=== PATIENT | female | born 2000 | race Caucasian/White ===

== ENCOUNTER 2020-08-01 20:57 | Observation (INO) | payer OTHER, MEDICAID ==
[~2020-08-01] VITALS: Ht 152.4 cm; Wt 86.6 kg
[2020-08-01] MEDS ORDERED: PREN1TAB78 PO (21:27)
[2020-08-01] MEDS ORDERED: ALBUTEROL (21:27)
[2020-08-01] MEDS ORDERED: LACTATED RINGERS 1,000 ML IV SCH (21:30)
[2020-08-01 22:00] LABS: HEMATOCRIT 28.7 % (36.0-48.0); HEMOGLOBIN 10.1 g/dL (12.0-16.0); MEAN CORPUSCULAR HEMOGLOBIN 28.4 pg (28.0-32.0); MEAN CORPUSCULAR VOLUME 81.1 fL (81.0-99.0); PLATELET 390 x1000/uL (130-400); RED BLOOD CELL COUNT 3.54 mill/uL (4.2-5.4); RED CELL DISTRIBUTION WIDTH 14.2 % (11.6-14.6)
[2020-08-01 22:04] LABS: COLOR URINE YELLOW (YELLOW); KETONES URINE NEGATIVE (NEGATIVE); LEUKOCYTE ESTERASE URINE 2+ (NEGATIVE); NITRITE URINE POSITIVE (NEGATIVE); OCCULT BLOOD URINE NEGATIVE (NEGATIVE); PROTEIN URINE NEGATIVE (NEGATIVE); SPECIFIC GRAVITY URINE 1.016 (1.005-1.030); UROBILINOGEN URINE 0.2 E.U./dL (0.2-1.0)
[2020-08-01 22:08] LABS: CLARITY URINE HAZY (CLEAR)
[2020-08-01 22:12] LABS: CHLORIDE 106 mEq/L (98-107)
[2020-08-01] MEDS ORDERED: CEFAZOLIN 2,000 MG in DEXT 5% WATER 100 ML IV SCH (23:00)
== END 2020-08-01 23:57 | disposition home or self-care (01) ==
LOC: 8 EST LDRP 20:57
PROVIDERS: ADMIT Obstetrics & Gynecology; ATTEND Obstetrics & Gynecology
DX: O26.892 Other specified pregnancy related conditions, second trimester (principal); R10.30 Lower abdominal pain, unspecified; R42 Dizziness and giddiness; Z3A.21 21 weeks gestation of pregnancy
CPT/HCPCS: 36415; 59025; 76805; 80053; 81003; 85027; 96361; 96365; G0378; J0690; J7060; 96360; 99281

== ENCOUNTER 2022-08-09 19:17 | Inpatient (IN) | payer OTHER ==
[~2022-08-09] VITALS: Ht 162.6 cm; Wt 63.8 kg
[~2022-08-09 19:17] MED LIST: ALBUTEROL; PREN1TAB78 PO
[2022-08-09] MEDS ORDERED: SODIUM CHLORIDE 0.9% 1,000 ML IV ONE ×2 (19:45→23:30)
[2022-08-09 20:40] LABS: BASOPHILS % 0.4 % (0.0-2.0); EOSINOPHILS % 0.5 % (0.0-5.0); HEMATOCRIT. 31.8 % (36.0-48.0); HEMOGLOBIN. 10.1 g/dL (12.0-16.0); MEAN CORPUSCULAR HEMOGLOBIN 20.4 pg (28.0-32.0); MEAN CORPUSCULAR VOLUME 64.1 fL (81.0-99.0); MEAN PLATELET VOLUME 8.3 fl (7.4-10.4); MONOCYTES % 5.7 % (2.0-8.0); NEUTROPHILS % 72.4 % (40.0-76.0); PLATELET 391 x1000/uL (130-400); RED BLOOD CELL COUNT 4.95 mill/uL (4.2-5.4); RED CELL DISTRIBUTION WIDTH 17.7 % (11.6-14.6)
[2022-08-09 20:48] LABS: PROTHROMBIN TIME 10.9 sec (9.6-11.0)
[2022-08-09 20:49] LABS: CHLORIDE 106 mEq/L (98-107)
[2022-08-09 22:29] LABS: CLARITY URINE CLOUDY (CLEAR); COLOR URINE YELLOW (YELLOW); KETONES URINE NEGATIVE (NEGATIVE); LEUKOCYTE ESTERASE URINE 3+ (NEGATIVE); NITRITE URINE NEGATIVE (NEGATIVE); OCCULT BLOOD URINE 2+ (NEGATIVE); PROTEIN URINE 2+ (NEGATIVE); SPECIFIC GRAVITY URINE 1.012 (1.005-1.030); UROBILINOGEN URINE 0.2 E.U./dL (0.2-1.0)
[2022-08-09 22:37] LABS: PLATELET ESTIMATE NORMAL
[2022-08-09] MEDS ORDERED: KETOROLAC 30MG/ML VIAL IV ONE (23:30)
[2022-08-09] MEDS ORDERED: CEFTRIAXONE 1GM PREMIX 50 ML IV ONE (23:30)
[2022-08-09] MEDS ORDERED: ONDANSETRON HCL 4MG/2ML INJ IV ONE (23:30)
[2022-08-10 01:16] LABS: HCG SCREEN NEGATIVE
[2022-08-10] MEDS ORDERED: IOHEXOL-300 100 ML BOTTLE ONE (02:26)
[2022-08-10] MEDS ORDERED: NALOXONE HCL 0.4MG/ML VIAL IV PRN (08:00)
[2022-08-10] MEDS ORDERED: ONDANSETRON HCL 4MG/2ML INJ IV PRN (08:00)
[2022-08-10] MEDS ORDERED: CLONIDINE 0.1MG TABLET PO PRN (08:00)
[2022-08-10] MEDS ORDERED: DOCUSATE SODIUM 100MG CAPSULE PO PRN (08:00)
[2022-08-10] MEDS ORDERED: CEFTRIAXONE 1GM PREMIX 50 ML IV NR (08:00)
[2022-08-10] MEDS ORDERED: LORAZEPAM 0.5MG TABLET PO PRN (08:00)
[2022-08-10] MEDS ORDERED: ACETAMINOPHEN 325MG TABLET PO PRN (08:00)
[2022-08-10] MEDS ORDERED: IPRATROPIUM/ALBUTEROL 0.5-3(2.5)MG/3ML NEB HHN PRN (08:00)
[2022-08-10 08:31] LABS: CHLORIDE 108 mEq/L (98-107)
[2022-08-10 09:16] LABS: EOSINOPHILS % 0.5 % (0.0-5.0); HEMATOCRIT. 27.4 % (36.0-48.0); HEMOGLOBIN. 9.1 g/dL (12.0-16.0); LYMPHOCYTES % 18.6 % (20.0-50.0); MEAN CORPUSCULAR HEMOGLOBIN 21.2 pg (28.0-32.0); MEAN CORPUSCULAR VOLUME 63.7 fL (81.0-99.0); MEAN PLATELET VOLUME 8.4 fl (7.4-10.4); MONOCYTES % 7.6 % (2.0-8.0); NEUTROPHILS % 72.7 % (40.0-76.0); PLATELET 327 x1000/uL (130-400); RED CELL DISTRIBUTION WIDTH 17.7 % (11.6-14.6)
[2022-08-10 09:20] VITALS: BP 116/69
[2022-08-10] MEDS: HYDROCODONE/ACETAMINOPHEN 5/325MG TABLET PO PRN (10:33)
[2022-08-10 10:43] LABS: BASOPHILS % 0.6 % (0.0-2.0)
[2022-08-10 11:41] VITALS: BP 116/69
[2022-08-10] MEDS: CEFTRIAXONE 1,000 MG in DEXTROSE 5% WATER 50 ML IV SCH (17:00)
[2022-08-10 20:00] VITALS: BP 117/55
[2022-08-10] MEDS: ACETAMINOPHEN 325MG TABLET PO PRN (20:32)
[2022-08-11] VITALS (7 sets, daily range): BP systolic 98–116; BP diastolic 39–66
[2022-08-11 06:00] LABS: BASOPHILS % 0.4 % (0.0-2.0); EOSINOPHILS % 0.9 % (0.0-5.0); HEMATOCRIT. 26.8 % (36.0-48.0); HEMOGLOBIN. 8.8 g/dL (12.0-16.0); LYMPHOCYTES % 21.4 % (20.0-50.0); MEAN CORPUSCULAR VOLUME 64.3 fL (81.0-99.0); MONOCYTES % 9.5 % (2.0-8.0); NEUTROPHILS % 67.8 % (40.0-76.0); PLATELET 315 x1000/uL (130-400); RED BLOOD CELL COUNT 4.18 mill/uL (4.2-5.4); RED CELL DISTRIBUTION WIDTH 17.7 % (11.6-14.6)
[2022-08-11] MEDS: HYDROCODONE/ACETAMINOPHEN 5/325MG TABLET PO PRN ×2 (07:51→14:30)
[2022-08-11] MEDS ORDERED: CEFTRIAXONE 1,000 MG in DEXTROSE 5% WATER 50 ML IV SCH (08:00)
[2022-08-11 08:04] LABS: CHLORIDE 108 mEq/L (98-107)
[2022-08-11 08:12] LABS: TOTAL IRON BINDING CAPACITY 236 ug/dL (250-450)
[2022-08-11] MEDS ORDERED: METF-416 MT (11:49)
[2022-08-11] MEDS: METFORMIN HCL 500MG TABLET PO SCH (17:49)
[2022-08-11] MEDS: CEFTRIAXONE 1,000 MG in DEXTROSE 5% WATER 50 ML IV SCH (17:50)
[2022-08-11] MEDS: ACETAMINOPHEN 325MG TABLET PO PRN (20:47)
[2022-08-12] VITALS: BP 101/57
[2022-08-12 04:00] VITALS: BP 96/51
[2022-08-12] MEDS: METFORMIN HCL 500MG TABLET PO SCH ×2 (06:49→17:56)
[2022-08-12 07:46] LABS: BASOPHILS % 0.6 % (0.0-2.0); EOSINOPHILS % 2.4 % (0.0-5.0); HEMOGLOBIN. 8.6 g/dL (12.0-16.0); LYMPHOCYTES % 36.7 % (20.0-50.0); MEAN CORPUSCULAR HEMOGLOBIN 21.2 pg (28.0-32.0); MEAN CORPUSCULAR VOLUME 64.3 fL (81.0-99.0); MEAN PLATELET VOLUME 8.6 fl (7.4-10.4); NEUTROPHILS % 53.3 % (40.0-76.0); PLATELET 357 x1000/uL (130-400); RED BLOOD CELL COUNT 4.04 mill/uL (4.2-5.4); RED CELL DISTRIBUTION WIDTH 17.4 % (11.6-14.6)
[2022-08-12 08:34] LABS: CHLORIDE 105 mEq/L (98-107)
[2022-08-12 12:00] VITALS: BP 110/63
[2022-08-12 16:00] VITALS: BP 108/68
[2022-08-12 17:33] VITALS: BP 136/75
== END 2022-08-12 18:45 | disposition home or self-care (01) | DRG 720 ==
LOC: ER 19:17 → 4WST 08-10 05:14 → EDBEDREQ 08-10 05:22 → 6EST 08-11 09:16
PROVIDERS: ADMIT Internal Medicine; ATTEND Internal Medicine
DX: A41.9 Sepsis, unspecified organism (principal); K76.0 Fatty (change of) liver, not elsewhere classified; N13.6 Pyonephrosis; E11.65 Type 2 diabetes mellitus with hyperglycemia; D50.9 Iron deficiency anemia, unspecified; E87.6 Hypokalemia; K80.20 Calculus of gallbladder without cholecystitis without obstruction; Z20.822 Contact with and (suspected) exposure to COVID-19
CPT/HCPCS: 36415; 74177; 76770; 80048; 80053; 81003; 82728; 82962; 83036; 83540; 83550; 84145; 84703; 85025; 87426; 99285; C9803; J0696; J1885; J2405; J7030; J7060; Q9967